=== PATIENT | female | born 1945 | race Caucasian/White ===

== ENCOUNTER 2021-01-18 13:47 | Outpatient (CLI) | payer MEDICARE, OTHER ==
[2021-01-18 15:23] LABS: #Basophils 0.1 10x3/uL (0.0-0.2); #Eosinphils 0.1 10x3/uL (0.0-0.5); #Monocytes 0.5 10x3/uL (0.0-1.1); #Neutrophils 5.2 10x3/uL (1.5-8.4); %Basophils 0.7 % (0.0-2.0); %Eosinophils 1.5 % (0.0-6.0); %Lymphocytes 29.1 % (18.0-47.0); %Monocytes 5.6 % (0.0-10.0); %Neutrophils 62.3 % (40.0-75.0); Mean Corpuscular HGB CONC 33.4 g/dL (32.0-36.0); Mean Corpuscular Hemoglobin 33.2 pg (27.0-33.0); Mean Corpuscular Volume 99.2 fl (81.6-98.3); Mean Platelet Volume 11.1 fl (7.4-10.4); Platelet Count 330 10x3/uL (150-450); RBC Distribution Width 14.4 % (11.5-14.5); Red Blood Cell (RBC) Count 3.92 10x6/uL (3.90-5.03); White Blood Cell (WBC) Count 8.4 10x3/uL (3.5-10.5)
[2021-01-18 15:24] LABS: Bilirubin Neg (Negative); Blood, Urine Negative (Negative); Clarity Clear (Clear); Glucose, Urine (Dipstick) Normal (Negative); Ketone, Urine Negative (Negative); Leukocyte 500 (Negative); Nitrite Negative (Negative); Protein, Urine (Dipstick) Negative (Neg-Trace); Urobilinogen Normal mg/dL (Less than 2)
[2021-01-18 15:30] LABS: Prothrombin Time 11.2 sec (9.5-12.1)
[2021-01-18 15:45] LABS: Anion Gap 17 mmol/L (10-20); BUN (Urea Nitrogen) 20 mg/dL (9.8-20.1); Calc. Creatinine Clearance 0 mL/min (70-130); Calcium 9.5 mg/dL (7.8-10.44); Carbon Dioxide 26 mmol/L (23-31); Chloride 99 mmol/L (98-107); Glucose 92 mg/dL (83-110); Potassium 4.2 mmol/L (3.5-5.1); Sodium 138 mmol/L (136-145)
[2021-01-18 16:01] LABS: RBC/HPF 0-3 HPF (0-3)
[2021-01-18 16:02] LABS: Bacteria/HPF Rare-Few HPF (None Seen); Squamous Epithelial 0-3 HPF (0-3)
[2021-01-19 01:27] LABS: SARS-CoV-2 PCR by NAA Not Detected (NotDetected)
== END 2021-01-18 13:48 | disposition home or self-care (01) ==
LOC: LABBT 13:47
PROVIDERS: ATTEND Orthopaedic Surgery
DX: Z01.818 Encounter for other preprocedural examination (principal); M17.11 Unilateral primary osteoarthritis, right knee; Z20.822 Contact with and (suspected) exposure to COVID-19
CPT/HCPCS: 80048; 81001; 85025; 85610; 87081; 93005; U0003; U0005; 87635; 93010

== ENCOUNTER 2021-01-18 14:00 | Inpatient (IN) | payer MEDICARE ==
[2021-01-23] MEDS ORDERED: Midazolam HCl 2 mg/2 ml Vial ONE (06:13)
[2021-01-23] MEDS ORDERED: Fentanyl 100 MCG/2 ML VIAL ONE ×4 (06:13→09:47)
[2021-01-23] MEDS ORDERED: Lidocaine 1% (PF) 30 ML VIAL ONE (06:43)
[2021-01-23] MEDS ORDERED: Vancomycin 1 GM/200 ML BAG ONE (06:59)
[2021-01-23] MEDS ORDERED: Tranexamic Acid 1,000 MG/10 ML VIAL ONE (06:59)
[2021-01-23] MEDS ORDERED: Sodium Chloride 0.9% 100 ML ONE (07:00)
[2021-01-23] MEDS ORDERED: Zolpidem Tartrate 5 MG TAB PO PRN ×2 (07:08→08:30)
[2021-01-23] MEDS ORDERED: Ondansetron PF 4 MG/2 ML Vial IVP PRN ×2 (07:08→08:30)
[2021-01-23] MEDS ORDERED: Promethazine HCl 25 MG/ML VIAL IM PRN ×3 (07:08→08:51)
[2021-01-23] MEDS ORDERED: Acetaminophen 325 MG TAB PO PRN ×2 (07:08→07:17)
[2021-01-23] MEDS ORDERED: Acetaminophen/Codeine 30-300mg Tablet PO PRN (07:10)
[2021-01-23] MEDS ORDERED: Colchicine 0.6 MG TAB PO PRN (07:17)
[2021-01-23] MEDS ORDERED: Non-Formulary Item 1 EACH (Hydrochlorothiazide [Hydrochlorothiazide] 12.5 MG Tablet) PO PRN (07:17)
[2021-01-23] MEDS ORDERED: Cetirizine HCl 10 MG TAB PO PRN (07:17)
[2021-01-23] MEDS ORDERED: Famotidine/PF 20 mg/2ml Vial ONE (07:24)
[2021-01-23] MEDS ORDERED: Lidocaine 1% PF 5 ML VIAL ONE (07:35)
[2021-01-23] MEDS ORDERED: PROPOFOL 200 MG/20 ML VIAL ONE (07:35)
[2021-01-23] MEDS ORDERED: Ondansetron PF 4 MG/2 ML Vial ONE (07:35)
[2021-01-23] MEDS ORDERED: Ropivacaine 2% HCl/PF (20 MG/10 ML VIAL) ONE (07:35)
[2021-01-23] MEDS ORDERED: Dexamethasone 20 MG/5 ML VIAL ONE (07:35)
[2021-01-23] MEDS ORDERED: Bupivacaine HCl 0.5%/Epinephrine 1:200,000/PF 30 ml Vial ONE (07:35)
[2021-01-23] MEDS ORDERED: Gentamicin 80 MG/2 ML VIAL ONE (07:37)
[2021-01-23] MEDS ORDERED: Loratadine 10 MG TAB PO PRN (07:42)
[2021-01-23] MEDS ORDERED: Hydrochlorothiazide 25 MG TAB PO PRN (07:50)
[2021-01-23] MEDS ORDERED: Fentanyl 100 MCG/2 ML VIAL IV PRN (08:17)
[2021-01-23] MEDS ORDERED: PACU-Morphine 4MG/ML VIAL SLOW IVP PRN (08:51)
[2021-01-23] MEDS ORDERED: Meperidine HCl/PF 25 MG/ML VIAL SLOW IVP PRN (08:51)
[2021-01-23] MEDS ORDERED: Promethazine HCl 25 MG/ML VIAL SLOW IVP PRN (08:51)
[2021-01-23] MEDS ORDERED: Non-Formulary Item 1 EACH (Cholecalciferol (Vitamin D3) [Vitamin D3] 5,000 UNITS Capsule) PO SCH (09:00)
[2021-01-23] MEDS ORDERED: Promethazine HCl 25 MG/ML VIAL ONE (09:44)
[2021-01-23] MEDS ORDERED: Morphine 4 MG/ML VIAL ONE (10:09)
[2021-01-23] MEDS ORDERED: Ketorolac Tromethamine 30 MG/ML VIAL ONE (10:10)
[2021-01-23] MEDS ORDERED: Morphine 2 MG/ML VIAL ONE (10:46)
[2021-01-23] MEDS: Allopurinol 300 MG TAB PO SCH (12:09)
[2021-01-23] MEDS: Ferrous Gluconate 324 MG TAB PO SCH ×2 (12:09→20:47)
[2021-01-23] MEDS: Aspirin 81 mg Enteric Coated Tablet PO SCH ×2 (12:09→20:55)
[2021-01-23] MEDS: Potassium Chloride 8 MEQ TAB PO SCH (12:09)
[2021-01-23] MEDS: Sodium Chloride 0.9% 1,000 ML IV SCH ×2 (12:09→15:00)
[2021-01-23] MEDS: Amlodipine 5 MG TAB PO SCH (12:09)
[2021-01-23] MEDS: Ergocalciferol 1.25 MG(50,000 UNITS) CAP PO SCH (12:09)
[2021-01-23] MEDS: Multivitamin W/ Minerals 1 TAB PO SCH (12:09)
[2021-01-23] MEDS: Senokot S 8.6-50 MG TAB PO SCH ×2 (12:10→20:48)
[2021-01-23] MEDS: Ketorolac Tromethamine 30 MG/ML VIAL IVP SCH ×3 (12:10→23:13)
[2021-01-23 12:50] VITALS: BMI 28.9
[2021-01-23] MEDS: Gentamicin Sulfate 80 MG in Premix Bag 1 BAG IVPB SCH ×2 (13:42→22:15)
[2021-01-23] MEDS ORDERED: Ketorolac Tromethamine 30 MG/ML VIAL IVP SCH (14:00)
[2021-01-23] MEDS ORDERED: Gentamicin 20 MG/2 ML PF (Neonates) IVPB SCH (14:00)
[2021-01-23] MEDS: Acetaminophen/Codeine 30-300mg Tablet PO PRN ×3 (14:00→22:14)
[2021-01-23] MEDS ORDERED: VANCOMYCIN 1.25 GM/250 ML BAG IVPB SCH (18:00)
[2021-01-23] MEDS: VANCOMYCIN 1.25 GM/250 ML BAG 1.25 GM in Premix Bag 1 BAG IVPB SCH (20:36)
[2021-01-23] MEDS: clonazePAM 1 MG TAB PO SCH (20:55)
[2021-01-23] MEDS: Ropivacaine HCl/PF 250 ML in Premix Bag 1 BAG NERVE BLCK SCH (23:12)
[2021-01-24 05:20] LABS: #Lymphocytes 1.5 thou/uL (1.20-3.40); #Monocytes 0.6 thou/uL (0.11-0.59); #Neutrophils 10.9 thou/uL (1.40-6.50); %Basophils 0.2 % (0.0-1.0); %Lymphocytes 11.4 % (21.0-51.0); %Monocytes 4.2 % (0.0-10.0); %Neutrophils 84.2 % (42.0-75.0); Mean Corpuscular HGB CONC 32.6 g/dL (32.0-36.0); Mean Corpuscular Hemoglobin 33.7 pg (27.0-31.0); Mean Platelet Volume 9.4 fL (7.4-10.4); Platelet Count 222 thou/uL (130-400); RBC Distribution Width 13.4 % (11.5-14.5); Red Blood Cell (RBC) Count 3.25 mill/uL (4.20-5.40)
[2021-01-24] MEDS: Ketorolac Tromethamine 30 MG/ML VIAL IVP SCH ×4 (05:35→23:20)
[2021-01-24] MEDS: Gentamicin Sulfate 80 MG in Premix Bag 1 BAG IVPB SCH (05:37)
[2021-01-24 05:44] LABS: Anion Gap 13 mmol/L (10-20); BUN (Urea Nitrogen) 14 mg/dL (9.8-20.1); Calc. Creatinine Clearance 57 mL/min (70-130); Calcium 8.2 mg/dL (7.8-10.44); Carbon Dioxide 22 mmol/L (23-31); Chloride 105 mmol/L (98-107); Glucose 117 mg/dL (83-110); Sodium 136 mmol/L (136-145)
[2021-01-24] MEDS: Sodium Chloride 0.9% 1,000 ML IV SCH ×3 (06:32→23:29)
[2021-01-24] MEDS: Acetaminophen/Codeine 30-300mg Tablet PO PRN ×4 (08:17→23:19)
[2021-01-24] MEDS: Senokot S 8.6-50 MG TAB PO SCH ×2 (08:17→19:58)
[2021-01-24] MEDS: Allopurinol 300 MG TAB PO SCH (08:18)
[2021-01-24] MEDS: Aspirin 81 mg Enteric Coated Tablet PO SCH ×2 (08:18→19:58)
[2021-01-24] MEDS: Ergocalciferol 1.25 MG(50,000 UNITS) CAP PO SCH (08:19)
[2021-01-24] MEDS: Ferrous Gluconate 324 MG TAB PO SCH ×2 (08:19→19:58)
[2021-01-24] MEDS: Multivitamin W/ Minerals 1 TAB PO SCH (08:19)
[2021-01-24] MEDS: Amlodipine 5 MG TAB PO SCH (08:20)
[2021-01-24] MEDS: Potassium Chloride 8 MEQ TAB PO SCH (08:20)
[2021-01-24] MEDS: VANCOMYCIN 1.25 GM/250 ML BAG 1.25 GM in Premix Bag 1 BAG IVPB SCH (08:21)
[2021-01-24] MEDS: clonazePAM 1 MG TAB PO SCH (20:00)
[2021-01-25] MEDS: Ropivacaine HCl/PF 250 ML in Premix Bag 1 BAG NERVE BLCK SCH (00:15)
[2021-01-25 05:24] LABS: #Basophils 0.1 thou/uL (0.0-0.2); #Eosinphils 0.2 thou/uL (0.0-0.7); #Lymphocytes 2.8 thou/uL (1.20-3.40); #Monocytes 0.8 thou/uL (0.11-0.59); #Neutrophils 3.9 thou/uL (1.40-6.50); %Basophils 1.5 % (0.0-1.0); %Eosinophils 2.8 % (0.0-10.0); %Lymphocytes 35.3 % (21.0-51.0); %Neutrophils 50.4 % (42.0-75.0); Hemoglobin 10.5 g/dL (12.0-16.0); Mean Corpuscular HGB CONC 32.5 g/dL (32.0-36.0); Mean Corpuscular Hemoglobin 33.8 pg (27.0-31.0); Mean Platelet Volume 9.3 fL (7.4-10.4); Platelet Count 209 thou/uL (130-400); RBC Distribution Width 13.3 % (11.5-14.5); Red Blood Cell (RBC) Count 3.11 mill/uL (4.20-5.40); White Blood Cell (WBC) Count 7.8 thou/uL (4.8-10.8)
[2021-01-25] MEDS: Ketorolac Tromethamine 30 MG/ML VIAL IVP SCH (05:37)
[2021-01-25 05:43] LABS: Anion Gap 12 mmol/L (10-20); BUN (Urea Nitrogen) 17 mg/dL (9.8-20.1); Calc. Creatinine Clearance 64 mL/min (70-130); Calcium 8.2 mg/dL (7.8-10.44); Carbon Dioxide 21 mmol/L (23-31); Chloride 109 mmol/L (98-107); Glucose 93 mg/dL (83-110); Potassium 3.5 mmol/L (3.5-5.1); Sodium 138 mmol/L (136-145)
[2021-01-25] MEDS: Ergocalciferol 1.25 MG(50,000 UNITS) CAP PO SCH (09:03)
[2021-01-25] MEDS: Aspirin 81 mg Enteric Coated Tablet PO SCH (09:03)
[2021-01-25] MEDS: Senokot S 8.6-50 MG TAB PO SCH (09:04)
[2021-01-25] MEDS: Potassium Chloride 8 MEQ TAB PO SCH (09:04)
[2021-01-25] MEDS: Multivitamin W/ Minerals 1 TAB PO SCH (09:04)
[2021-01-25] MEDS: Ferrous Gluconate 324 MG TAB PO SCH (09:04)
[2021-01-25] MEDS: Allopurinol 300 MG TAB PO SCH (09:04)
[2021-01-25] MEDS: Amlodipine 5 MG TAB PO SCH (09:04)
[2021-01-25] MEDS: Acetaminophen/Codeine 30-300mg Tablet PO PRN (11:27)
[2021-01-25] MEDS: Sodium Chloride 0.9% 1,000 ML IV SCH ×2 (11:29→15:03)
[2021-01-25] MEDS ORDERED: Ropivacaine 0.2% 550 ML 550 ML NERVE BLCK SCH (13:00)
[2021-01-25 15:56] VITALS: BP 133/70; TEMP 98.4
== END 2021-01-25 16:10 | disposition home or self-care (01) | DRG 470 ==
LOC: SJJU 01-23 05:43
PROVIDERS: ADMIT Orthopaedic Surgery; ATTEND Orthopaedic Surgery
PROC: 0SRC0J9 Replacement of Right Knee Joint with Synthetic Substitute, Cemented, Open Approach (ICD-10-PCS; principal; 2021-01-23)
PROC: 8E0YXBZ Computer Assisted Procedure of Lower Extremity (ICD-10-PCS; 2021-01-23)
DX: M17.11 Unilateral primary osteoarthritis, right knee (principal); Z20.822 Contact with and (suspected) exposure to COVID-19; M21.161 Varus deformity, not elsewhere classified, right knee; I10 Essential (primary) hypertension; I73.9 Peripheral vascular disease, unspecified; J30.2 Other seasonal allergic rhinitis; M10.9 Gout, unspecified; G89.29 Other chronic pain; M21.061 Valgus deformity, not elsewhere classified, right knee; G62.9 Polyneuropathy, unspecified; Z88.5 Allergy status to narcotic agent; Z88.1 Allergy status to other antibiotic agents; Z88.8 Allergy status to other drugs, medicaments and biological substances; Z91.041 Radiographic dye allergy status; Z91.013 Allergy to seafood; Z90.710 Acquired absence of both cervix and uterus; Z98.890 Other specified postprocedural states; Z88.2 Allergy status to sulfonamides; Z79.899 Other long term (current) drug therapy
CPT/HCPCS: 80048; A4306; C1713; C1776; J1100; J1580; J1885; J2001; J2250; J2270; J2405; J2550; J2704; J2795; J3010; J3370; J3490; S0028

== ENCOUNTER 2023-01-22 12:51 | Outpatient (CLI) | payer MEDICARE | END 2023-01-22 12:52 | disposition home or self-care (01) | LOC: BICMRI 12:51 | PROVIDERS: ATTEND Anesthesiology Pain Medicine | DX: M47.26 Other spondylosis with radiculopathy, lumbar region (principal); M47.815 Spondylosis without myelopathy or radiculopathy, thoracolumbar region; M47.817 Spondylosis without myelopathy or radiculopathy, lumbosacral region; K80.20 Calculus of gallbladder without cholecystitis without obstruction | CPT/HCPCS: 72148 ==

== ENCOUNTER 2024-08-27 14:17 | Outpatient (CLI) | payer MEDICARE | END 2024-08-27 14:18 | disposition home or self-care (01) | LOC: SCSRAD 14:17 | DX: S49.92XA Unspecified injury of left shoulder and upper arm, initial encounter (principal) ==

== ENCOUNTER 2024-10-20 13:03 | Outpatient (CLI) | payer MEDICARE | END 2024-10-20 13:04 | disposition home or self-care (01) | LOC: SCSMRI 13:03 | PROVIDERS: ATTEND Nurse Practitioner Family | DX: M25.512 Pain in left shoulder (principal); M19.012 Primary osteoarthritis, left shoulder; S42.255A Nondisplaced fracture of greater tuberosity of left humerus, initial encounter for closed fracture ==

== ENCOUNTER 2025-08-23 08:47 | Outpatient (CLI) | payer MEDICARE | END 2025-08-23 08:48 | disposition home or self-care (01) | LOC: SCSMRI 08:47 | PROVIDERS: ATTEND Specialist | DX: M54.16 Radiculopathy, lumbar region (principal); M48.061 Spinal stenosis, lumbar region without neurogenic claudication; M48.07 Spinal stenosis, lumbosacral region; M48.05 Spinal stenosis, thoracolumbar region | CPT/HCPCS: 72148 ==